=== PATIENT | male | born 1970 | race Caucasian/White ===

== ENCOUNTER → 2020-02-05 | Outpatient (CLI) | payer OTHER ==
[~2020-02-05] MED LIST: ATOR1TAB19 PO; LISI10TA4 PO
[2020-02-05 15:32] LABS: BASO % 0.2 % (0.0-1.0); EOS # 0.1 10^3/uL (0.0-0.5); HEMATOCRIT 40.6 % (42.0-52.0); HEMOGLOBIN 13.7 g/dl (13.5-17.5); LYMPH # 1.7 10^3/uL (1.5-5.0); LYMPH % 28.3 % (24.0-44.0); MEAN CORPUSCULAR HEMOGLOBIN 30.2 pg (27.0-33.0); MEAN CORPUSCULAR HGB CONC 33.7 g/dl (32.0-36.5); MEAN CORPUSCULAR VOLUME 89.4 fl (80.0-96.0); MONO # 0.4 10^3/uL (0.0-0.8); MONO % 7.2 % (0.0-5.0); NEUTROPHILS # 3.7 10^3/uL (1.5-8.5); PLATELET COUNT, AUTOMATED 252 10^3/uL (150-450); RED BLOOD COUNT 4.54 10^6/uL (4.30-6.10); WHITE BLOOD COUNT 5.8 10^3/uL (4.0-10.0)
[2020-02-05 15:50] LABS: ALT/SGPT 42 U/L (12-78); BILIRUBIN,TOTAL 0.7 MG/DL (0.2-1.0); BLOOD UREA NITROGEN 10 MG/DL (7-18); CALCIUM LEVEL 9.2 MG/DL (8.5-10.1); CARBON DIOXIDE LEVEL 33 MEQ/L (21-32); CHLORIDE LEVEL 108 MEQ/L (98-107); CREATININE FOR GFR 1.11 MG/DL (0.70-1.30); FREE T4 0.83 NG/DL (0.76-1.46); GLOMERULAR FILTRATION RATE > 60.0 (>60); GLUCOSE, FASTING 95 MG/DL (70-100); POTASSIUM SERUM 3.5 MEQ/L (3.5-5.1); SODIUM LEVEL 143 MEQ/L (136-145)
[2020-02-05 15:59] LABS: ERYTHROCYTE SEDIMENTATION RATE 8 mm/hr (0-15)
== END ==
LOC: M WUC 13:30
PROVIDERS: ATTEND Physician Assistant
DX: H53.8 Other visual disturbances (principal)

== ENCOUNTER 2020-02-06 04:40 | Emergency (ER) | payer OTHER ==
[~2020-02-06] VITALS: Ht 170.2 cm; Wt 97.6 kg
[2020-02-06] MEDS ORDERED: ATOR1TAB19 PO (04:49)
[2020-02-06] MEDS ORDERED: LISI10TA4 PO (04:49)
--- NOTE | 2020-02-06 08:18 | REP ---
MR angiography the brain without contrast: History: Binocular diplopia. Right-sided cranial nerves sixth palsy. Technique: 3-D [id number] MR angiography of the brain is acquired in the usual fashion and maximal intensity projection images were generated in rotational format about the vertical and horizontal axes. In addition, source axial T1-weighted images are viewed in cine mode. MR angiographic findings: The distal vertebral arteries are patent and co-dominant. Basilar artery is a little tortuous but widely patent. The posterior cerebral and superior cerebellar vessels are normal and symmetric. The distal internal carotid arteries are unremarkable. Anterior and middle cerebral arteries appear intact. There is no visible hammer aneurysm or arteriovenous malformation. Impression: Unremarkable MR angiography the brain. Electronically Signed by Kaleb Martinez MD 02/06/2020 08:09 A
--- NOTE | 2020-02-06 08:57 | REP ---
MRI BRAIN WITHOUT CONTRAST: HISTORY: Binocular diplopia, right-sided sixth nerve palsy. No comparison brain imaging. TECHNIQUE: Axial and sagittal imaging planes are utilized for T1- and T2-weighted scans. Sequences include spin-echo, fast spin echo, FLAIR, and diffusion weighted sequences. MRI FINDINGS: Sagittal and axial images demonstrate 14 mm of tonsillar ectopia consistent with Arnold Chiari type 1 malformation. There is some crowding at the foramen magnum although the spinal medullary junction is not visibly compressed. No kinking is seen. There is no evidence of hydrocephalous. No other malformation is appreciated. No bony calvarial lesion is seen. There is no evidence of significant paranasal sinus disease. No intraorbital abnormality is appreciated. The deep facial and skull base soft tissues are unremarkable. Cee-white differentiation pattern is intact above below the tentorium. Diffusion weighted scans show no evidence of restricted diffusion in the alonso or elsewhere intracranially to suggest acute ischemia. There is no evidence of intracranial hemorrhage. No mass or midline shift is seen. IMPRESSION: 13 mm of tonsillar ectopia consistent with Arnold Chiari type 1 malformation. Some crowding at the level of the foramen magnum but no evidence of kinking or connie compression of the spinal medullary junction. Otherwise negative. Electronically Signed by Kaleb Martinez MD 02/06/2020 09:14 A
[2020-02-06 10:23] VITALS: BP 160/92
--- NOTE | 2020-02-07 16:11 | ED PDOC ---
Post-Departure Follow-Up andi bonilla and ken faxed formal report of mri brain for fu. Lavern Swann MD Feb 07, 2020 16:11
== END 2020-02-06 10:25 | disposition home or self-care (01) ==
LOC: M ED 04:40
DX: H53.2 Diplopia (principal); G93.5 Compression of brain; I10 Essential (primary) hypertension; E78.5 Hyperlipidemia, unspecified; Z79.899 Other long term (current) drug therapy; E07.9 Disorder of thyroid, unspecified

== ENCOUNTER → 2020-02-06 | Outpatient (CLI) | payer OTHER ==
[2020-02-06 14:35] LABS: C REACTIVE PROTEIN QUANTITATIV < 0.30 MG/DL (0.00-0.30); FREE THYROXINE INDEX 2.9 % (1.4-3.8); T UPTAKE 31 % (33-40); THYROXINE (T4) 9.2 UG/DL (4.5-12.0)
== END ==
LOC: M LAB 12:56
PROVIDERS: ATTEND Ophthalmology
DX: E07.9 Disorder of thyroid, unspecified (principal)

== ENCOUNTER → 2020-02-14 | Outpatient (CLI) | payer OTHER | LOC: M RAD 15:50 | PROVIDERS: ATTEND Ophthalmology | DX: G83.9 Paralytic syndrome, unspecified (principal) ==

== ENCOUNTER → 2020-02-22 | Outpatient (CLI) | payer OTHER ==
[~2020-02-22] MED LIST changes: +PROHANCE 279.3MG/ML 15ML VIAL (A9576) As Ordered ONE; +PROHANCE 279.3MG/ML 5ML VIAL (A9576) As Ordered ONE
--- NOTE | 2020-02-22 09:25 | REP ---
MR angiography the brain without contrast: History: Focused on ocular motor nucleus. Right-sided palsy. Diplopia. Comparison is made with MR angiography of the brain from February 06, 2020. Technique: 3-D [id number] MR angiography of the brain is acquired in the usual fashion and maximal intensity projection images were generated in rotational format about the vertical and horizontal axes. In addition, source axial T1-weighted images are viewed in cine mode. MR angiographic findings: The distal vertebral arteries are patent and co-dominant. Basilar artery is a little tortuous but widely patent. The posterior cerebral and superior cerebellar vessels are normal and symmetric. The distal internal carotid arteries are unremarkable. Anterior and middle cerebral arteries appear intact. There is no visible hammer aneurysm or arteriovenous malformation. Impression: Unremarkable MR angiography the brain. Electronically Signed by Kaleb Martinez MD 02/22/2020 09:17 A
--- NOTE | 2020-02-22 09:58 | REPVR ---
PROCEDURE INFORMATION: Exam: MR Orbit Without and With Contrast Exam date and time: 02/22/2020 8:59 AM Age: 49 years old Clinical indication: Visual changes or disturbances; Double vision (diplopia); Patient HX: Double vision worse on RT side that is improving priors at other facilities unsure where; Additional info: Diplopia, right sided palay TECHNIQUE: Imaging protocol: MR Orbit was performed without and with intravenous contrast. 3D rendering: MIP and/or 3D reconstructed images were created by the technologist. Contrast material: PROHANCE; Contrast volume: 19 ml; Contrast route: 22G; COMPARISON: No relevant prior studies available. FINDINGS: Orbits: The globes, extraocular muscles and optic nerves appear symmetric bilaterally. Sinuses: There is mild ethmoid and maxillary sinus mucosal thickening. Soft tissues: Unremarkable. IMPRESSION: No acute abnormality. Electronically signed by: Arminda Tinsley On 02/22/2020 09:58:25 AM
--- NOTE | 2020-02-22 10:05 | REPVR ---
PROCEDURE INFORMATION: Exam: MR Head Without and With Contrast Exam date and time: 02/22/2020 8:59 AM Age: 49 years old Clinical indication: Visual disturbance; Patient HX: Double vision worse on RT side that is improving priors at other facilities unsure where; Additional info: Diplopia, right sided palay TECHNIQUE: Imaging protocol: MR of the head without and with intravenous contrast. 3D rendering: MIP and/or 3D reconstructed images were created by the technologist. Contrast material: PROHANCE; Contrast volume: 19 ml; Contrast route: 22G; Other technique: MRA is recommended to evaluate for vascular structures. COMPARISON: MRI-Brain without Contrast 02/06/2020 7:10 AM FINDINGS: Brain: There is pronounced inferior cerebellar tonsillar ectopia measuring up to 15 mm, compatible with a Chiari 1 type malformation. There is no extra-axial collection or intra-axial mass. Normal parenchymal signal is preserved. There is no diffusion restriction. Ventricles: The ventricles are normal in size and configuration for age. Bones/joints: Unremarkable. Soft tissues: Unremarkable. Sinuses: Normal as visualized. No acute sinusitis. Mastoid air cells: Normal as visualized. No mastoid effusion. Orbits: Unremarkable. IMPRESSION: 1. No acute intracranial abnormality. 2. Stable Chiari 1 malformation. PROCEDURE INFORMATION: Exam: MR Angiogram Head Without Contrast, Arteries Exam date and time: 02/22/2020 8:59 AM Age: 49 years old Clinical indication: Visual disturbance; Patient HX: Double vision worse on RT side that is improving priors at other facilities unsure where; Additional info: Diplopia, right sided palay TECHNIQUE: Imaging protocol: MR angiogram head without contrast. Exam focused on the arteries. Other technique: MRA is recommended to evaluate for vascular structures. COMPARISON: MRI-Brain without Contrast 02/06/2020 7:10 AM FINDINGS: Right internal carotid artery: Intracranial segment is patent with no significant stenosis. No aneurysm. Right anterior cerebral artery: No occlusion or significant stenosis. No aneurysm. Right middle cerebral artery: No occlusion or significant stenosis. No aneurysm. Right posterior cerebral artery: No occlusion or significant stenosis. No aneurysm. Right vertebral artery: No occlusion or significant stenosis. No aneurysm. Left internal carotid artery: Intracranial segment is patent with no significant stenosis. No aneurysm. Left anterior cerebral artery: No occlusion or significant stenosis. No aneurysm. Left middle cerebral artery: No occlusion or significant stenosis. No aneurysm. Left posterior cerebral artery: No occlusion or significant stenosis. No aneurysm. Left vertebral artery: No occlusion or significant stenosis. No aneurysm. Basilar artery: No occlusion or significant stenosis. No aneurysm. IMPRESSION: No stenosis or occlusion. Electronically signed by: Arminda Tinsley On 02/22/2020 10:05:17 AM
== END ==
LOC: M RAD 06:29
PROVIDERS: ATTEND Ophthalmology
DX: H53.2 Diplopia (principal)
CPT/HCPCS: 70543; 70544; 70553; A9576

== ENCOUNTER → 2020-10-20 | Outpatient (CLI) | payer SELFPAY ==
[~2020-10-20] MED LIST changes: -PROHANCE 279.3MG/ML 15ML VIAL (A9576) As Ordered ONE; -PROHANCE 279.3MG/ML 5ML VIAL (A9576) As Ordered ONE
== END ==
LOC: M LABSMTC 12:38
PROVIDERS: ATTEND Pediatrics
DX: Z20.828 Contact with and (suspected) exposure to other viral communicable diseases (principal)

== ENCOUNTER → 2020-11-22 | Outpatient (CLI) | payer SELFPAY | LOC: M LABSMTC 08:06 | PROVIDERS: ATTEND Pediatrics | DX: Z20.822 Contact with and (suspected) exposure to COVID-19 (principal) ==

== ENCOUNTER → 2021-02-19 | Outpatient (CLI) | payer OTHER ==
[~2021-02-19] MED LIST changes: +LISI10TA22 PO; -LISI10TA4 PO
--- NOTE | 2021-02-19 08:42 | REP ---
INDICATION: SPRAIN COMPARISON: None. TECHNIQUE: There are four views. FINDINGS: There is no fracture or dislocation. Mineralization and joint spaces are normal. There are no calcifications or foreign bodies. IMPRESSION: Essentially negative right ankle. <Electronically signed by Garcia Brown > 02/19/21 [id number]
== END ==
LOC: M WUC 08:07
PROVIDERS: ATTEND Physician Assistant
DX: S93.401A Sprain of unspecified ligament of right ankle, initial encounter (principal); X58.XXXA Exposure to other specified factors, initial encounter; Y92.89 Other specified places as the place of occurrence of the external cause

== ENCOUNTER → 2021-12-09 | Outpatient (CLI) | payer OTHER ==
[~2021-12-09] MED LIST changes: +ATOR40TA75 PO; +BAYE81TA7 PO; +FLON1SPR; +LISI20TA33 PO; +MYRB50TA PO
== END ==
LOC: M LABSMTC 09:05
PROVIDERS: ATTEND Anesthesiology
DX: Z01.812 Encounter for preprocedural laboratory examination (principal); Z11.52 Encounter for screening for COVID-19

== ENCOUNTER 2021-12-14 07:39 | Day surgery (SDC) | payer OTHER ==
[~2021-12-14] VITALS: Ht 170.2 cm; Wt 101.8 kg
[2021-12-14 09:51] VITALS: BP 136/65
== END 2021-12-14 09:52 | disposition home or self-care (01) ==
LOC: M OPP 07:39
PROVIDERS: ATTEND Internal Medicine Gastroenterology
DX: Z12.11 Encounter for screening for malignant neoplasm of colon (principal); K63.5 Polyp of colon; K57.30 Diverticulosis of large intestine without perforation or abscess without bleeding; K64.0 First degree hemorrhoids; Z79.82 Long term (current) use of aspirin; Z79.899 Other long term (current) drug therapy; Z86.73 Personal history of transient ischemic attack (TIA), and cerebral infarction without residual deficits; Z87.442 Personal history of urinary calculi

== ENCOUNTER 2022-03-24 07:17 | Inpatient (IN) | payer OTHER ==
[~2022-03-24] VITALS: Ht 167.6 cm; Wt 99.6 kg
[~2022-03-24 07:17] MED LIST changes: -FLON1SPR; +FLON1SPR NARES
[2022-03-24] MEDS ORDERED: xyzal PO (07:26)
[2022-03-24] MEDS ORDERED: OMEG10002 PO (07:26)
[2022-03-24] MEDS ORDERED: ISOVUE-370 76% 100ML VIAL As Ordered ONE (07:53)
[2022-03-24 07:54] LABS: BASO % 0.4 % (0.0-1.0); EOS # 0.1 10^3/uL (0.0-0.5); EOS % 2.3 % (0.0-3.0); HEMATOCRIT 42.8 % (42.0-52.0); HEMOGLOBIN 14.6 g/dl (13.5-17.5); LYMPH # 1.5 10^3/uL (1.5-5.0); LYMPH % 28.1 % (24.0-44.0); MEAN CORPUSCULAR HGB CONC 34.1 g/dl (32.0-36.5); MEAN CORPUSCULAR VOLUME 88.1 fl (80.0-96.0); MONO # 0.5 10^3/uL (0.0-0.8); MONO % 8.8 % (2.0-8.0); NEUTROPHILS # 3.2 10^3/uL (1.5-8.5); NEUTROPHILS % 60.2 % (36.0-66.0); PLATELET COUNT, AUTOMATED 272 10^3/uL (150-450); RED BLOOD COUNT 4.86 10^6/uL (4.30-6.10); WHITE BLOOD COUNT 5.2 10^3/uL (4.0-10.0)
[2022-03-24 08:09] LABS: PARTIAL THROMBOPLASTIN TIME 32.4 SECONDS (25.9-37.0)
[2022-03-24 08:18] LABS: CK-MB VALUE MASS 1.9 NG/ML (<3.6); MB/CK RELATIVE INDEX 0.62 (< OR =4)
[2022-03-24 08:25] LABS: RSV AMPLIFICATION NEGATIVE (NEGATIVE)
[2022-03-24 08:55] LABS: INR 0.9; PROTHROMBIN TIME 12.5 SECONDS (12.7-14.5)
[2022-03-24] MEDS ORDERED: LEVOTAB10 PO (08:57)
[2022-03-24] MEDS ORDERED: HOME MED LIST COMPLETE! XX SCH ×2 (09:00)
[2022-03-24] MEDS ORDERED: ASPIRIN 325 MG TAB PO ONE (09:10)
[2022-03-24] MEDS ORDERED: FLUTICASONE PROP 0.05% NASAL SPRAY 16 GM (FLONASE) NARES PRN (09:45)
[2022-03-24 13:00] VITALS: BP 188/91
[2022-03-24 16:00] VITALS: BP 150/84
[2022-03-24 20:00] VITALS: BP 147/67
[2022-03-25] VITALS: BP 117/71
[2022-03-25 04:00] VITALS: BP 130/81
[2022-03-25 05:11] LABS: HEMATOCRIT 39.1 % (42.0-52.0); HEMOGLOBIN 13.5 g/dl (13.5-17.5); MEAN CORPUSCULAR HEMOGLOBIN 30.3 pg (27.0-33.0); MEAN CORPUSCULAR HGB CONC 34.5 g/dl (32.0-36.5); MEAN CORPUSCULAR VOLUME 87.7 fl (80.0-96.0); PLATELET COUNT, AUTOMATED 255 10^3/uL (150-450); RED BLOOD COUNT 4.46 10^6/uL (4.30-6.10); WHITE BLOOD COUNT 5.8 10^3/uL (4.0-10.0)
[2022-03-25 05:35] LABS: BLOOD UREA NITROGEN 13 MG/DL (7-18); CALCIUM LEVEL 8.7 MG/DL (8.5-10.1); CARBON DIOXIDE LEVEL 31 MEQ/L (21-32); CHLORIDE LEVEL 109 MEQ/L (98-107); CHOLESTEROL LEVEL 112 MG/DL (<200); CHOLESTEROL RISK RATIO 3.294 (<5); CREATININE FOR GFR 1.18 MG/DL (0.70-1.30); GLOMERULAR FILTRATION RATE > 60.0 (>56); GLUCOSE, FASTING 101 MG/DL (70-100); HDL CHOLESTEROL 34 MG/DL (>40); LDL CHOLESTEROL 48 MG/DL (<100); NON-HDL-C 78 MG/DL; SODIUM LEVEL 143 MEQ/L (136-145); TRIGLYCERIDES LEVEL 152 MG/DL (<150)
[2022-03-25 05:36] LABS: HEMOGLOBIN A1c 5.4 %
[2022-03-25 08:17] VITALS: BP 130/81
[2022-03-25 08:43] VITALS: BP 143/72
[2022-03-25] MEDS ORDERED: ATORVASTATIN 20 MG TAB PO SCH (09:00)
[2022-03-25] MEDS ORDERED: OMEGA-3 1000MG CAPSULE PO SCH (09:00)
[2022-03-25] MEDS ORDERED: ASPIRIN 325 MG TAB PO SCH (09:00)
== END 2022-03-25 11:20 | disposition home or self-care (01) | DRG 93 ==
LOC: M ED 07:17 → M ED INP 09:46 → ENRESERV 11:18 → M PCU 12:15
PROVIDERS: ADMIT Internal Medicine; ATTEND Internal Medicine
DX: Q07.00 Arnold-Chiari syndrome without spina bifida or hydrocephalus (principal); H53.2 Diplopia; I10 Essential (primary) hypertension; E78.5 Hyperlipidemia, unspecified; H49.02 Third [oculomotor] nerve palsy, left eye; F17.220 Nicotine dependence, chewing tobacco, uncomplicated; Z20.822 Contact with and (suspected) exposure to COVID-19; Z79.82 Long term (current) use of aspirin; Z79.899 Other long term (current) drug therapy